=== PATIENT | female | born 1955 | race Hispanic/Latino ===

== ENCOUNTER 2018-02-04 21:35 | Emergency (ER) | payer OTHER ==
[2018-02-04] MEDS ORDERED: Albuterol-Ipratrop 3 mg / 0.5 (3 ml) UD ONE (21:44)
[2018-02-04] MEDS ORDERED: Succinylcholine 200 mg/10 ml Inj IV ONE (21:54)
[2018-02-04 22:03] VITALS: BMI 39.1
--- NOTE | 2018-02-04 22:05 | ED PDOC ---
Arrival/HPI - General Time Seen by Provider: 02/04/18 22:05 Historian: Spouse, EMS - History of Present Illness Narrative History of Present Illness (Text): 02/04/18 22:05 Josette Lozano is a 62 year old female, whose past medical history includes hypotension, who presents to the Emergency department brought in by EMS for shortness of breath status post near-syncopal episode prior to arrival. As per patient's , patient began feeling increasingly dizzy and light-headed yesterday evening while shopping, which persisted throughout today. states tonight patient became progressively short of breath while outside and notified EMS. On arrival to Emergency department, patient went in to cardiac arrest while being placed on nasal cannula. Limited HPI and ROS secondary to cardiac arrest. Time/Duration: Prior to Arrival Symptom Course: Worsening Severity Level: Severe Activities at Onset: Light Context: Home Past Medical History - Provider Review Nursing Documentation Reviewed: Yes Family/Social History - Physician Review Nursing Documentation Reviewed: Yes Family/Social History: Unknown Family HX Allergies/Home Meds Allergies/Adverse Reactions: Allergies No Known Allergies Allergy (Verified 02/04/18 22:02) Review of Systems - Review of Systems Systems not reviewed;Unavailable: Unstable Vital Signs (Cardiac arrest) Respiratory: SOB Cardiovascular: Other (+near-syncopal) Neurological: Dizziness Physical Exam Vital Signs Reviewed: Yes Vital Signs Temp Pulse Resp BP Pulse Ox 02/04/18 23:23 44 L 16 191/131 H 80 L 02/04/18 22:44 88 63/48 L 02/04/18 22:38 46 L 141/117 H 02/04/18 22:02 124 H 20 93/36 L 87 L 02/04/18 21:56 98.6 F 73 110 H 90 L 02/04/18 21:44 26 H Temperature: Afebrile Blood Pressure: Hypotensive Pulse: Pulseless Respiratory Rate: Agonal Appearance: Positive for: Ill-Appearing Mental Status: Positive for: other (Unresponsive) - Systems Exam Head: Present: Atraumatic, Normocephalic Conjunctiva: Present: Normal Mouth: Present: Moist Mucous Membranes Neck: Present: Normal Range of Motion Respiratory/Chest: Present: Clear to Auscultation Cardiovascular: Present: Other (Pulseless) Abdomen: No: Distention, Peritoneal Signs Upper Extremity: No: Cyanosis, Edema Lower Extremity: No: Edema Skin: Present: Dry, Normal Color. No: Rashes Psychiatric: Present: Other (Unresponsive) Medical Decision Making ED Course and Treatment: 02/04/18 21:43 Impression: 62 year old female brought in for shortness of breath, went in to cardiac arrest while being placed on nasal cannula. Differential Diagnosis included but are not limited to: cardiac arrest Plan: -- EKG -- Chest X-ray -- Labs, cardiac enzymes, VBG, D-dimer -- Urinalysis -- Reassess and disposition Progress Notes: 02/04/18 21:43 Called to bedside by RN. Pt became unresponsive and went in to cardiac arrest while being placed on nasal cannula. Pt pulseless, in asystole. CPR and ACLS protocol initiated. 02/04/18 21:57 Respiratory therapist to bedside, IV access obtained. Pt placed on IV fluids PROCEDURE: INTUBATION Performed by the emergency provider Consent: Discussion of the risks, benefits, and alternatives to the procedure, along with informed consent was precluded by the urgency of the procedure and the patient condition. Timeout: A timeout to verify the correct patient, procedure, and site was performed. Indication: Cardiac arrest Pre-oxygenation: [id number] Medications: Succinylcholine. See MAR for details. ETT Size: 8 gauge Confirmation: Cords directly visualized as tube passed, good bilateral breath sounds, positive CO2 detector color change, tube fogging, adequate chest rise, improving pulse oximetry reading, and absence of gastric sounds,. ETT Secured: The cuff was inflated and the tube was secured appropriately at a distance of 24 cm at the lip. Post-Procedure: There were no immediate complications. CXR Confirmation: No 02/04/18 22:28 EKG reviewed, Wide QRS rhythm at 52 bpm. Non-specific intraventricular block. Anterlateral infarct. 02/04/18 23:34 Pt coded multiple times over 2 hours while in Emergency room. Pt placed on IV fluids, Levophed, and received multiple doses of Epi. Refer to nursing code documentation for further information. Pt remains pulseless, in asystole. Bedside US performed, shows pulseless electrical activity. Family present in ER , discussed resuscitation efforts with family, who verbalize understanding. Time of called at 23:34, will sign certificate. patents examiner notified. - Critical Care Critical Care Minutes: 90 minutes - Lab Interpretations Lab Results: 02/04/18 22:14 02/04/18 22:14 Lab Results 02/04/18 22:18: pO2 40, VBG pH 7.09 L*, VBG pCO2 62.0 H, VBG HCO3 18.8 L, VBG Total CO2 20.7 L, VBG O2 Sat (Calc) 64.9, VBG Base Excess -11.7 L, VBG Potassium 2.6 L, Glucose 334 H, Lactate 9.2 H*, FiO2 21.0, Sodium 137.0, Chloride 99.0, Venous Blood Potassium 2.6 L 02/04/18 22:14: APTT 31.6, D-Dimer, Quantitative 4508 H 02/04/18 22:14: Sodium 140, Potassium 2.7 L*, Chloride 99, Carbon Dioxide 19 L, Anion Gap 25 H, BUN 14, Creatinine 1.1, Est GFR ( Amer) > 60, Est GFR ( Non-Af Amer) 51, Random Glucose 308 H*, Calcium 8.7, Magnesium 2.2, Total Bilirubin 0.5, AST 176 H, ALT 162 H, Alkaline Phosphatase 101, Lactate Dehydrogenase 1690 H, Total Creatine Kinase 99, Troponin I 0.05, Total Protein 6.9, Albumin 4.2, Globulin 2.7, Albumin/Globulin Ratio 1.5 02/04/18 22:14: WBC 21.7 H, RBC 4.55, Hgb 14.0, Hct 41.7, MCV 91.6, MCH 30.8, MCHC 33.6, RDW 14.4, Plt Count 211, MPV 9.6, Gran % 43.9 L, Lymph % (Auto) 46.4 H, Price % (Auto) 6.4 H, Eos % (Auto) 3.0, Baso % (Auto) 0.3, Gran # 9.50 H, Lymph # (Auto) 10.0 H, Price # (Auto) 1.4 H, Eos # (Auto) 0.7, Baso # (Auto) 0.07 I have reviewed the lab results: Yes - EKG Interpretation Interpreted by ED Physician: Yes Type: 12 lead EKG - Medication Orders Current Medication Orders: Discontinued Medications NOREPINEPHRINE BIT/0.9 % NACL (Levophed 4 Mg/ 250 Ml Ns Premixed) 4 mg in 250 mls @ 15 mls/hr IV .[id number] PRN; Protocol; 4 MCG/MIN PRN Reason: TITRATE PER MD ORDER Norepinephrine Bitartrate 8 mg (/ Sodium Chloride) 508 mls @ 15.24 mls/hr IV .Q24H PRN; Protocol; 4 MCG/MIN PRN Reason: TITRATE PER MD ORDER Potassium Chloride (Potassium Chloride 20 Meq/100 Ml) 20 meq in 100 mls @ 50 mls/hr IVPB ONCE ONE Stop: 02/05/18 00:51 Last Admin: 02/04/18 22:55 Dose: 50 mls/hr eMAR Start Stop Document 02/04/18 22:55 RG (Rec: 02/05/18 02:07 DYLAN [id number]) Intravenous Solution Start Date 02/05/18 Start Time 22:55 - Scribe Statement The provider has reviewed the documentation as recorded by the Scribe Veronica Willis All medical record entries made by the Scribe were at my direction and personally dictated by me. I have reviewed the chart and agree that the record accurately reflects my personal performance of the history, physical exam, medical decision making, and the department course for this patient. I have also personally directed, reviewed, and agree with the discharge instructions and disposition. Disposition/Present on Arrival - Present on Arrival Any Indicators Present on Arrival: No - Disposition Have Diagnosis and Disposition been Completed?: Yes Diagnosis: Cardiac arrest Disposition: WITH WITHOUT AUTOPSY Disposition Time: 23:34 Condition: Forms: Center'd (Kiswahili)
[2018-02-04 22:27] LABS: BASO # 0.07 K/mm3 (0.0-2.0); BASO % 0.3 % (0.0-3.0); EOS # 0.7 (0.0-0.7); GRAN # 9.5 (1.4-6.5); GRAN % 43.9 % (50.0-68.0); LYMPH % 46.4 % (22.0-35.0); MEAN CELL VOLUME 91.6 fl (80.0-105.0); MEAN CORPUSCULAR HEMOGLOBIN 30.8 pg (25.0-35.0); MEAN CORPUSCULAR HGB CONC 33.6 g/dl (31.0-37.0); MEAN PLATELET VOLUME 9.6 fl (7.0-11.0); MONO # 1.4 (0.1-0.6); MONO % 6.4 % (1.0-6.0); RBC 4.55 10^6/uL (3.5-6.1); RED CELL DISTRIBUTION WIDTH 14.4 % (11.5-14.5); WHITE BLOOD COUNT 21.7 10^3/ul (4.5-11.0)
[2018-02-04] MEDS ORDERED: NOREPINEPHRINE BIT/0.9 % NACL 4 MG/250 ML BAG IV PRN (22:28)
[2018-02-04 22:29] LABS: VENOUS BLOOD GAS BASE EXCESS -11.7 mmol/L (0.0-2.0); VENOUS BLOOD GAS PO2 40 mm/Hg (30-55); VENOUS BLOOD PH 7.09 (7.32-7.43)
[2018-02-04] MEDS ORDERED: Norepinephrine 8 MG in Sodium Chloride 0.9% 500 ML IV PRN (22:33)
[2018-02-04 22:47] LABS: TROPONIN I 0.05 ng/mL
[2018-02-04 22:48] LABS: PARTIAL THROMBOPLASTIN TIME 31.6 Seconds (25.1-36.5)
[2018-02-04 22:50] LABS: ALB/GLOB RATIO 1.5 (1.1-1.8); ALBUMIN 4.2 g/dL (3.0-4.8); ALT/SGPT 162 U/L (7-56); AST/SGOT 176 U/L (14-36); BLOOD UREA NITROGEN 14 mg/dL (7-21); CALCIUM 8.7 mg/dL (8.4-10.5); GFR AFRICAN-AMERICAN > 60; GFR NON-AFRICAN AMERICAN 51
[2018-02-05 01:38] VITALS: TEMP 98.6
[2018-02-05 01:49] VITALS: BP 191/131; PULSE 44; RESP 16; O2SAT 80
== END 2018-02-04 23:34 ==
LOC: ED 21:35
DX: I46.9 Cardiac arrest, cause unspecified (principal); I95.9 Hypotension, unspecified
CPT/HCPCS: 31500; 80053; 82550; 82803; 83615; 83735; 84484; 85025; 85378; 85730; 92950; 99285; J3480